=== PATIENT | male | born 1950 | race Caucasian/White ===

== ENCOUNTER 2017-12-05 09:56 | Day surgery (SDC) | payer OTHER ==
[~2017-12-05] VITALS: Ht 177.8 cm; Wt 99.7 kg
[~2017-12-05 09:56] MED LIST: ADULT ASPIRIN81 MG PO; AMARYL4 MG PO; AZOPT 1% O200 DROP/1 LEFT EYE; CYANOCOBALAM1000 MCG PO; DIOVAN320 MG PO; GLUCOPHAGE1000 MG PO; LABETALOL HCL100 MG PO; LASIX20 MG PO; PRAVACHOL20 MG PO; PRILOSEC20 MG PO; TRILIPIX135 MG PO; TYLENOL ARTHRI650 MG PO
[2017-12-05 10:40] VITALS: BP 162/90
[2017-12-05 10:52] LABS: HEMATOCRIT 39.6 % (38.0-50.0); HEMOGLOBIN 13.3 G/DL (12.5-16.6); MCH 28.8 PG (29.0-34.0); MCHC 33.6 G/DL (30.0-36.0); MCV 85.7 FL (86-99); PLATELET COUNT 219 K/uL (156-360); RBC DIS.WIDTH-CV 13.2 % (11.8-14.6); RBC DIS.WIDTH-SD 41.1 % (39-53); RED BLOOD COUNT 4.62 M/uL (4.00-5.50); WHITE BLOOD COUNT 5.4 K/uL (4.1-10.2)
[2017-12-05 11:24] LABS: ALBUMIN 4.5 G/DL (3.2-4.8); ALKALINE PHOSPHATASE 41 IU/L (3-129); ALT (GPT) 31 IU/L (3-49); AST (GOT) 32 IU/L (2-34); CHLORIDE 109 MEQ/L (99-109); CREATININE 1.1 MG/DL (0.6-1.3); GFR ESTIMATE (CALCULATED) > 59 mL/min/ (58.99-99999); GLUCOSE 171 mg/dL (70-99); POTASSIUM 4.6 MEQ/L (3.7-5.4); SODIUM 140 MEQ/L (136-147); TOTAL BILIRUBIN 0.6 MG/DL (0.0-1.0); TOTAL PROTEIN 6.4 G/DL (6.4-8.3); UREA NITROGEN (BUN) 13 mg/dL (9-23)
[2017-12-05 14:26] VITALS: BP 155/91
[2017-12-05 15:00] VITALS: BP 148/90
== END 2017-12-05 15:04 | disposition home or self-care (01) ==
LOC: SDC 09:56
PROVIDERS: Ophthalmology
DX: H33.42 Traction detachment of retina, left eye (principal); I10 Essential (primary) hypertension; E11.9 Type 2 diabetes mellitus without complications; M19.90 Unspecified osteoarthritis, unspecified site; Z87.442 Personal history of urinary calculi; Z82.49 Family history of ischemic heart disease and other diseases of the circulatory system; Z88.8 Allergy status to other drugs, medicaments and biological substances
CPT/HCPCS: 80053; 82948; 85027; 93005; J0690; J1100; J1120; J2250; J2405; J2795; J3300